=== PATIENT | male | born 1980 | race Caucasian/White ===

== ENCOUNTER 2021-09-11 11:19 | Day surgery (SDC) | payer BC ==
[~2021-09-11 11:19] MED LIST: Lactated Ringers 1,000 ML IV SCH
[2021-09-11] MEDS ORDERED: fentaNYL 100 MCG/2 ML SDV ONE (13:50)
[2021-09-11] MEDS ORDERED: Propofol 200 MG/20 ML SDV ONE ×2 (13:50→14:05)
== END 2021-09-11 15:05 | disposition home or self-care (01) ==
LOC: MW.SDS 11:19
PROVIDERS: ATTEND Surgery
DX: Z12.11 Encounter for screening for malignant neoplasm of colon (principal); I10 Essential (primary) hypertension; E78.5 Hyperlipidemia, unspecified; Z80.0 Family history of malignant neoplasm of digestive organs; Z79.899 Other long term (current) drug therapy
CPT/HCPCS: 45378; J2704; J3010; J7120; 00812